=== PATIENT | male | born 1975 | race Caucasian/White ===

== ENCOUNTER 2018-08-22 18:04 | Emergency (ER) | payer MEDICAID ==
[~2018-08-22] VITALS: Ht 175.3 cm; Wt 103.4 kg
--- NOTE | 2018-08-22 18:29 | NUR ---
PT TO ER BED 1 VIA [facility]
[2018-08-22 18:38] VITALS: BP 171/84
[2018-08-22] MEDS ORDERED: NACL 0.9% 1,000 ML IV ONE ×2 (19:10→21:05)
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
--- NOTE | 2018-08-22 19:25 | NUR ---
PT WOUNDS IRRIGATED WITH NORMAL SALINE
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
--- NOTE | 2018-08-22 19:41 | NUR ---
LAB AT BEDSIDE.
--- NOTE | 2018-08-22 19:58 | NUR ---
URINAL PROVIDED TO PT. AWAITING URINE SAMPLE.
--- NOTE | 2018-08-22 20:00 | NUR ---
PT C/O CHEST PAIN WITH ERRATIC BEHAVIOR. DR. BANUELOS NOTIFIED.
[2018-08-22 20:05] LABS: BASOPHILS # (AUTO) 0.1 K/uL (0.00-0.22); BASOPHILS % (AUTO) 0.4 % (0.0-2.0); EOSINOPHILS % (AUTO) 0.3 % (0.0-4.0); HEMATOCRIT 46.9 % (36-52); LYMPHOCYTES # (AUTO) 2.1 K/uL (2.0-11.5); LYMPHOCYTES % (AUTO) 16.9 % (20.5-51.1); MEAN CORPUSCULAR HEMOGLOBIN 31 pg (27-31); MEAN CORPUSCULAR HGB CONC 34 g/dL (33-37); MEAN CORPUSCULAR VOLUME 89.7 fL (80-94); MONOCYTES # (AUTO) 0.6 K/uL (0.8-1.0); MONOCYTES % (AUTO) 5.1 % (1.7-9.3); NEUTROPHILS # (AUTO) 9.4 K/uL (1.8-7.7); NEUTROPHILS % (AUTO) 77.3 % (42.2-75.2); PLATELET COUNT (AUTO) 263 K/uL (140-450); RED BLOOD CELL COUNT(AUTO) 5.23 MIL/uL (4.20-6.10); RED CELL DISTRIBUTION WIDTH 12.8 % (11.6-13.7); WHITE BLOOD COUNT (AUTO) 12.2 K/uL (4.8-10.8)
--- NOTE | 2018-08-22 20:10 | NUR ---
PT CHANGED INTO GOWN WITH PD AT BEDSIDE.
[2018-08-22 20:15] LABS: PROTHROMBIN TIME 9.7 secs (10.8-13.4)
--- NOTE | 2018-08-22 20:18 | NUR ---
PT TAKEN TO CT VIA [facility].
[2018-08-22 20:33] LABS: ALBUMIN 4.1 g/dL (3.4-5.0); ANION GAP 18.8 (8-16); ASPARTATE AMINOTRANSFERASE 30 U/L (15-37); CARBON DIOXIDE 19.8 mmol/L (21-32); CHLORIDE 98 mmol/L (98-107); CREATININE 1.1 mg/dL (0.7-1.3); GFR ARICAN-AMERICAN 94 mL/min (>90); POTASSIUM 3.6 mmol/L (3.5-5.1); SODIUM SERUM 133 mmol/L (136-145); TOTAL BILIRUBIN 0.7 mg/dL (0.0-1.0); UREA NITROGEN, BLOOD 13 mg/dL (7-18)
[2018-08-22 20:37] LABS: ACETAMINOPHEN < 0.5 ug/ml (10-30); GLUCOSE 442 mg/dL (74-106); SALICYLATE < 2.8 mg/dL (2.8-20.0)
--- NOTE | 2018-08-22 21:01 | NUR ---
PT REFUSING TO PROVIDE URINE SAMPLE. DR. BANUELOS MADE AWARE.
[2018-08-22 22:05] VITALS: BP 130/85
--- NOTE | 2018-08-22 22:05 | NUR ---
PATIENT BIB [employer]. PATIENT EXAMINED BY . PATIENT MEDICALLY CLEARED AND RELEASED IN CUSTODY IN STABLE CONDITION. ORIGINAL PRE-BOOK FORM GIVEN TO OFFICER SHARIF.
== END 2018-08-22 22:05 ==
LOC: MED 18:04
DX: S00.81XA Abrasion of other part of head, initial encounter (principal); E11.65 Type 2 diabetes mellitus with hyperglycemia; F10.129 Alcohol abuse with intoxication, unspecified; R07.9 Chest pain, unspecified; M54.9 Dorsalgia, unspecified; M25.532 Pain in left wrist; Y90.4 Blood alcohol level of 80-99 mg/100 ml; V89.2XXA Person injured in unspecified motor-vehicle accident, traffic, initial encounter; Y93.89 Activity, other specified; Y92.410 Unspecified street and highway as the place of occurrence of the external cause; Y99.8 Other external cause status
CPT/HCPCS: 36415; 36600; 70450; 71045; 71250; 72125; 74176; 80053; 82803; 82948; 85025; 85610; 86886; 86900; 86901; 99284; G0480; G0482; J7030; Q0092